=== PATIENT | female | born 1995 | race Caucasian/White ===

== ENCOUNTER 2016-09-13 13:28 | Emergency (ER) | payer OTHER ==
[~2016-09-13] VITALS: Ht 149.9 cm; Wt 54.5 kg
[2016-09-13 15:17] LABS: MCH 28.2 PG (29.0-34.0); MCHC 33.8 G/DL (30.0-36.0); MCV 83.5 FL (83-99); MEAN PLAT.VOLUME 9.9 uM^3 (9.5-12.4); PLATELET COUNT 393 K/uL (156-360); RBC DIS.WIDTH-CV 13.3 % (11.8-14.6); RBC DIS.WIDTH-SD 39.4 % (39-53); RED BLOOD COUNT 4.43 M/uL (3.80-5.20); WHITE BLOOD COUNT 8.2 K/uL (4.1-10.2)
[2016-09-13 15:28] LABS: CHLORIDE 108 mEq/L (99-109); SODIUM 141 mEq/L (136-147)
[2016-09-13 15:30] LABS: GLUCOSE 95 mg/dL (70-99)
[2016-09-13 15:31] LABS: ANION GAP 9 MEQ/L (2-14)
[2016-09-13 15:32] LABS: TOTAL BILIRUBIN 0.2 mg/dL (0.0-1.0)
[2016-09-13 15:33] LABS: ALKALINE PHOSPHATASE 73 IU/L (3-129)
[2016-09-13 15:34] LABS: GFR ESTIMATE (CALCULATED) > 59 mL/min/
[2016-09-13 15:35] LABS: UREA NITROGEN (BUN) 7 mg/dL (9-23)
[2016-09-13 15:42] LABS: QUANTITATIVE HCG < 4.0 MIU/ML
[2016-09-13 16:22] LABS: ADD MIUA? YES; BILIRUBIN NEGATIVE; BLOOD MODERATE; COLOR YELLOW ((YELLOW)); GLUCOSE (STRIP) NEGATIVE; KETONES NEGATIVE; LEUKOCYTES SMALL; NITRITE NEGATIVE; PH, URINE 6.5 (5-8); PROTEIN (STRIP) NEGATIVE; SPECIFIC GRAVITY 1.023 (1.000-1.030)
[2016-09-13 16:41] LABS: BACTERIA 2+; CASTS NONE SEEN /LPF; CRYSTALS NONE SEEN; EPITHELIAL CELLS 2+; MUCUS NONE SEEN; PATHOLOGICAL CAST NONE SEEN; SMALL ROUND CELL NONE SEEN; UCUL ADDED? YES; YEAST-LIKE CELL NONE SEEN
[2016-09-13 16:51] LABS: LIPASE 29 U/L (1.0-51.0)
[2016-09-13] MEDS ORDERED: CIPRO500 MG PO (17:54)
[2016-09-13] MEDS ORDERED: ZOFRAN ODT4 MG PO (17:54)
[2016-09-13 18:26] VITALS: BP 119/74
== END 2016-09-13 18:28 | disposition home or self-care (01) ==
LOC: EME 13:28
DX: N39.0 Urinary tract infection, site not specified (principal); R10.9 Unspecified abdominal pain; R51 Headache; R42 Dizziness and giddiness
CPT/HCPCS: 70450; 74176; 80053; 81003; 83690; 84702; 85027; 87086; 99281; 99285; J1200; J2765; J3010; J7030